=== PATIENT | female | born 1975 | race Caucasian/White ===

== ENCOUNTER 2019-08-11 10:29 | Outpatient (CLI) | payer BC, SELFPAY ==
--- NOTE | ~2019-08-11 | XR_ITS ---
[XR ribs RT 2V w CXR 2V ] INDICATION: Right-sided chest pain with cough. TECHNIQUE: Frontal projection of the upper right ribs, frontal projection of the lower right ribs, ob lique projection of all the right ribs, frontal inspiratory chest x-ray for interpretation. FINDINGS: There is right middle and lower lobe pneumonia. Small right pleural effusion. No displaced rib fractures. No edema or pneumothorax. Left lung clear. No acute osseous abnormality. IMPRESSION: 1:No displaced rib fractures. 2:Right middle and lower lobe pneumonia with small right effusion. Reviewed, dictated and finalized at location A.
== END 2019-08-11 10:30 | disposition home or self-care (01) ==
PROVIDERS: PCP Family Medicine; Visit Provider Family Medicine
DX: J18.9 Pneumonia, unspecified organism (principal); J90 Pleural effusion, not elsewhere classified
CPT/HCPCS: 71046; 71100

== ENCOUNTER 2019-08-14 14:02 | Outpatient (NON) | payer OTHER, SELFPAY ==
[2019-08-16 12:47] LABS: SARS-CoV-2 RNA PCR Negative
== END 2019-08-14 14:03 ==
PROVIDERS: PCP Family Medicine; Visit Provider Family Medicine
DX: J18.9 Pneumonia, unspecified organism (principal); Z20.828 Contact with and (suspected) exposure to other viral communicable diseases
CPT/HCPCS: 87635; C9803; U0003

== ENCOUNTER 2020-10-13 01:30 | Day surgery (SDC) | payer BC, SELFPAY ==
[2020-10-09 16:26] VITALS: BMI 30.8
[2020-10-13] VITALS (9 sets, daily range): BP systolic 110–148; BP diastolic 67–96; PULSE 62–96; RESP 12–18; TEMP 36.8–37.3; O2SAT 99–100
--- NOTE | 2020-10-13 11:44 | WPDANESEPPF ---
Anes - Initial Pre Proc Eval Procedure: Operation Date: 10/13/20 13:00 Proposed Procedures p Laparoscopic Bilateral Salpingectomy, Removal Intrauterine Device - Mirtha Smith MD Date/Time: 10/13/20 11:44 Surgeon: Mirtha Smith MD Pre Op Diagnosis: desired sterilization Patient Data Age: 45 Gender: F Height: 1.6 m Weight: 79 kg Allergies Allergy/AdvReac Type Severity Reaction Status Date / Time No Known Allergies Verified 10/13/20 12:27 Home Medications Medication Instructions Recorded Confirmed Type No Home Medications 10/09/20 10/13/20 History Patient hx anesthesia problems: none Family hx anesthesia problems: none PMFSH Family History Family History Sibling Breast cancer, Onset Age: 36 Reportedly had bilateral mastectomy and hysterectomy. Unsure if tested for BRCA. Mother Hyperlipidemia Father , age 67 Acute myocardial infarction, Onset Age: 67 Social History Social History Smoking status: Never smoker Second hand tobacco smoke exposure: No Alcohol intake: current Drinks per week: 1 Substance use: never Substance use type: does not use Living arrangements: with family Gender identity (if verbalized by the patient): Female Sexual Orientation (if Verbalized by the Patient): Straight or Heterosexual Spiritual care concerns: No Agree to blood products: Yes Anes - Eval Final PreProcedure Day of Procedure 10/13/20 11:44 Patient weight: obese Heart: regular rate and rhythm Lungs: clear to auscultation and normal air movement Airway: Mallampati scale class II Neurological: alert and oriented Last oral intake: >/= 8 hours ASA classification: II Emergent: no Anesthetic plan: proceed Anesthesia type and monitoring: general ETT and standard monitoring Informed Consent: The patient's anesthetic plan and its attendant risks and benefits were discussed with the patient/family/POA. Questions were solicited and answers provided to the satisfaction of the patient/family/POA.
[2020-10-13] MEDS: ACETAMINOPHEN 500 MG TABLET 1000 MG PO (11:59)
[2020-10-13] MEDS: KETOROLAC 15 MG/ML VIAL (*BKC) IV PUSH (12:02)
[2020-10-13] MEDS: LACTATED RINGERS 1,000 ML 30 ML IV CONT ×2 (12:02→15:17)
--- NOTE | 2020-10-13 12:29 | PM.HPGS ---
History of Present Illness History of Present Illness Consent: Risks, benefits, and alternatives have been discussed and questions answered. Patient agrees to proceed with procedure. Chief complaint: desired sterilization Narrative: Sierra Maddox is a 45 year old female CC preop for Tubal salpingectomy with IUD removal HPI Here to discuss upcoming surgery. Has raul on BC sulma age 21. Would like to come off hormones. Plan is to do tubal ligation with VNOTES to preserve abdomen without incisions. Also would like to have iUD pulled. Understands her periods will return PMHx No known medical problems PSHx no surgeries FHx No family history has been documented for this patient Soc Hx Tobacco: Never smoker Alcohol: Do not drink Drug Abuse: No illicit drug use Ob Preg Hx Ob History: Age of menses:12 G2 T0 L2 Allergies No known allergies (Allergy reconciliation performed by Celi Darling 11:32 AM 24 Jun 2020 Last updated) Review of Systems Review of Systems: ROS -JETT, -Vis changes, -F/s/c -CP, -palpitations, -irregular heart beats -SOB, -Cough/wheeze -Abdominal pain, -diarrhea/constipation -Vaginal discharge, -bleeding, -ulcerations or masses -New skin lesions, -dryness, -hairloss -trouble ambulation, -vertigo, -dizziness, -muscle weakeness, -joint pains -depression/anxiety, -suicidal/homicidal ideation, -hallucinations -hotflashes, -nightsweats, - mood swings, -vaginal dryness, -dyspareunia, - insomnia/poor sleep, -hair loss, -skin dryness, -brain fog, -decreased concentration, -intolerance to loud noises, -abnormal weight changes, -libido changes [facility] Family History Family History Sibling Breast cancer, Onset Age: 36 Reportedly had bilateral mastectomy and hysterectomy. Unsure if tested for BRCA. Mother Hyperlipidemia Father , age 67 Acute myocardial infarction, Onset Age: 67 Social History Social History Smoking status: Never smoker Second hand tobacco smoke exposure: No Alcohol intake: current Drinks per week: 1 Substance use: never Substance use type: does not use Living arrangements: with family Gender identity (if verbalized by the patient): Female Sexual Orientation (if Verbalized by the Patient): Straight or Heterosexual Spiritual care concerns: No Agree to blood products: Yes Meds Home Medications and Allergies Home Medications Medication Instructions Recorded Confirmed Type No Home Medications 10/09/20 10/13/20 History Allergies Allergy/AdvReac Type Severity Reaction Status Date / Time No Known Allergies Verified 10/13/20 12:27 Exam Narrative: Vitals 07 Oct 2020 - 09:54 AM - recorded by Celi Darling BP: 142.0 / 80.0 HR: 81.0 bpm RR: 16.0 rpm Temp: 97.3 ?F Ht/Lt: 5' 2.25 Wt: 174 lbs 6 oz BMI: 31.64 EXAM GEN: NAD EYES: PERRLA, EOMI RESP: lungs clear to auscultation bilaterally, no rales, wheezes or rhonchi CV: RRR, no m/r/g GI: +BSx4 quadrants, nontender to palpation, no rebound, no guarding. EXT: no cyanosis/clubbing/edema NEURO: AO x 3 PSYCH: judgment/insight intact, NL mood/affect. No suicidal or homocidal ideation l. Assessment and Plan Additional Plan Assessment Intrauterine contraception (finding) (Z97.5/V45.51) Presence of (intrauterine) contraceptive device modified June, Sterilization requested (situation) (Z30.2/V25.2) Encounter for sterilization modified June, Plan Plan is to move forward with laparoscopic tubal sterilization. Plan to utilize VNOTES approach if able Risk/benefits/alternatives discussed. Will move forward at [facility]
--- NOTE | 2020-10-13 12:32 | WPDHPUPDATE1 ---
History and Physical Update Update Date/Time: 10/13/20 12:32 History and Physical has been reviewed, including an updated exam of the patient. There are NO changes in the patient's condition. Risks, benefits, and alternatives have been discussed and questions answered. Patient agrees to proceed with procedure.
[2020-10-13] MEDS: ceFAZolin SODIUM 1 GM VIAL 2 GM IV PUSH (13:51)
[2020-10-13] MEDS: BUPIVACAINE/EPINEPHRINE 0.5% 50 ML VIAL (13:57)
--- NOTE | 2020-10-13 15:13 | SUR.OPER ---
1 foot of vaginal packing insert by Dr. Smith
--- NOTE | 2020-10-13 15:17 | P.OP_ITS ---
Procedure Note - Detailed Date of Procedure 10/13/20 Pre-op Diagnosis desired sterilization Post-op Diagnosis same Procedure Performed laparoscopic bilateral salpingectomy with VNOTES Surgeon Mirtha Smith MD Anesthesia general Findings normal tubes and ovaries bilaterally. Of note: Small adhesion noted of small bowel to posterior culdesac. Description of Procedure The patient was taken to operating room and general anesthesia was found to be adequate. She was prepared and draped in the doral lithotomy position in [employer] [facility]. A speculum was used to visualize the cervix and a single toothed tenaculum was placed on the posterior lip of the cervix. 0.5% marcaine with epinephrine was used to inject into the posterior vaginal wall and into the pouch of Antwan. A scalpel was used to make a 2cm incision 1cm inferior to the posterior cervical vaginal junction. Metzembaums were then used to enter into the posterior culdesac of the pelvis (Pouch of Antwan) and the incision stretched laterally. The Yunior retractor was then placed with the introducer and and the gel port affixed after inserting 3 trocars. The pneumoperitoneum was then created and kept at approximately 10mmHg. The uterus was elevated and the ovaries and tubes were draped along the sides and appeared normal. The left ovary had a small ovarian cyst that appeared simple in nature. The small bowel were attempted to push up into the upper abdomen except there was a small adhesion keeping it in the pelvis. The fimbria was then grasp on the left and pulled medial and the tuboovarian ligament was cauterized with 5mm Ligasure and . I travelled along proximal to the tube til the cornua of the uterus was noted and then transected the tube at its base. it was pulled through the 10mm port. The right fallopian tube similarly was grasp at the fimbria but it was slightly adhesed to the right ovary. So the ligasure used to remove these adhesions, then pull the fimbria medial and cauterize through the tuboovarian ligament until we reached the base. This was then transected and pulled through the trochar port. The pedicals were visible and hemostatic. So the pneumoperitoneum released and Yunior retractor removed. The posterior colpotomy incision was bleeding from the left corner. The peritneum was grasp and O vicryl used to reapproximate the peritoneum to the vaginal cuff to aid in hemostasis. A figure of 8 was placed here. Good hemostasis noted after second attempted. The right corner was also closed with a figure of 8 and then the vaginal incision was closed with O vicryl in 3 figure of 8 sutures. The cuff was hemostatic however a second figure of 8 placed in the left corner. The tenaculum removed and a figure of 8 needed over one of the tenaculum sites. A vaginal pack was then placed The procedure went well. All sponge lap and n eedles were counted and correct and the patient was sent to recovery in stable condition. Estimated Blood Loss 260 IV Fluids 1,000 Drains No Packing Yes Pathology yes (bilateral fallopian tubes. Left one is marked with suture) Complications No immediate complications Condition stable Disposition PACU
--- NOTE | 2020-10-13 15:42 | SUR.PHASEI ---
1542 - dr. mcmullen at bedside talking with pt. dr. mcmullen instructed nursisng staff to pull packing out before she goes to bathroom
--- NOTE | 2020-10-13 16:17 | SUR.PHASEII ---
Vaginal packing removed as per Dr. Smith
== END 2020-10-13 16:35 | disposition home or self-care (01) ==
PROVIDERS: PCP Family Medicine; Visit Provider Obstetrics & Gynecology
PROC: (CPT 49320; principal; 2020-10-13 13:00)
DX: Z30.2 Encounter for sterilization (principal); Z97.5 Presence of (intrauterine) contraceptive device; K66.0 Peritoneal adhesions (postprocedural) (postinfection); E66.9 Obesity, unspecified; Z68.30 Body mass index [BMI] 30.0-30.9, adult
CPT/HCPCS: 58661; 88302; A9270; J0690; J1100; J1885; J2250; J2405; J2704; J2710; J3010; J7120